=== PATIENT | male | born 1980 | race Caucasian/White ===

== ENCOUNTER 2017-01-15 22:15 | Emergency (ER) | payer SELFPAY ==
[~2017-01-15] VITALS: Ht 182.9 cm; Wt 145.1 kg
[~2017-01-15 22:15] MED LIST: AMOX250S6 PO; CLIN300C3 PO; HYDR-1231 PO
--- OUTSIDE RECORDS SUMMARY | 2017-01-15 22:20 | XMS REPORT | Continuity of Care Document ---
Author Author [facility] Address Unknown Phone Unavailable Allergies Medications Problems Date Dx Coded Attending Type Code Diagnosis Diagnosed By 06/17/2008 THALIA HICKMAN DO 272.0 HYPERCHOLESTEROLEMIA PURE 06/17/2008 THALIA HICKMAN DO 401.1 HYPERTENSION, BENIGN ESSENTIAL 06/17/2008 THALIA HICKMAN DO 709.9 DERMATITIS OTHER SKIN DISORDERS 02/09/2012 THALIA HICKMAN DO V70.5 PREEMPLOYMENT/PRESCHOOL EXAM Procedures Code [place] [address] UA LONG DIP 02/06 Results Encounters ACCT No. Visit Date/Time Discharge Status Pt. Type Provider Facility Loc./Unit Complaint [id number] 02/06/2014 11:22:00 02/06/2014 23: 59:59 CLS Outpatient THALIA HICKMAN DO
[2017-01-15] MEDS ORDERED: HYDR-3729 PO (22:27)
[2017-01-15] MEDS ORDERED: TRAM50TA2 PO (22:27)
[2017-01-15] MEDS ORDERED: LIDOCAINE 1% INJ 20 ML (XYLOCAINE) VIAL INJ ONE (23:45)
[2017-01-16] MEDS ORDERED: CLINDAMYCIN 150 MG (CLEOCIN) CAP PO ONE
[2017-01-16] MEDS ORDERED: AMOX500C2 PO (00:04)
[2017-01-16] MEDS ORDERED: CLIN150C17 PO (00:04)
--- NOTE | 2017-01-16 00:04 | ED General ---
General Chief Complaint: Dental Problems/Pain Stated Complaint: ABCESS IN MOUTH/CHEEK Nursing Triage Note: C/O L upper dental pain with facial swelling x 2 weeks. patient reports recently being on erythromycin Nursing Sepsis Screen: No Definite Risk Source of Information: Patient Exam Limitations: No Limitations History of Present Illness Time Seen by Provider: 23:28 Initial Comments This 36-year-old gentleman presents to the emergency room with complaints of left facial swelling and pain related to a dental abscess. He has been taking erythromycin prescribed by his primary care provider but symptoms have worsened despite. He denies fever. Allergies and Home Medications Allergies Coded Allergies: lisinopril (Verified Allergy, Unknown, ANAPHYLAXIS, 04/05/14) Home Medications Amoxicillin 500 Mg Capsule #40 1,000 MG PO BID Prescribed by: ANGELINA POLANCO on 01/16/17 0004 Clindamycin HCl 150 Mg Capsule #90 450 MG PO TID Prescribed by: ANGELINA POLANCO on 01/16/17 0004 Hydrocodone/Acetaminophen 1 Each Tablet 1 EACH PO (Reported) Tramadol HCl 50 Mg Tablet 50 MG PO (Reported) Constitutional: no symptoms reported EENTM: see HPI Respiratory: no symptoms reported Cardiovascular: no symptoms reported Gastrointestinal: no symptoms reported Genitourinary: no symptoms reported Musculoskeletal: no symptoms reported Skin: no symptoms reported Psychiatric/Neurological: No Symptoms Reported Past Xpdqswc-Tijztd-Rsfwrv Hx Patient Social History Alcohol Use: Denies Use Recreational Drug Use: No Smoking Status: Current Everyday Smoker Type Used: Cigarettes Recent Foreign Travel: No Contact w/Someone Who Travel: No Recent Infectious Disease Expo: No Recent Hopitalizations: No Surgeries HX Surgeries: Yes Surgeries: Adenoidectomy, Orthopedic, Tonsillectomy Respiratory Hx Respiratory Disorders: Yes Respiratory Disorders: Emphysema Cardiovascular Hx Cardiac Disorders: Yes Cardiac Disorders: Hypertension Neurological Hx Neurological Disorders: No Genitourinary Hx Genitourinary Disorders: No Gastrointestinal Hx Gastrointestinal Disorders: No Musculoskeletal Hx Musculoskeletal Disorders: Yes Musculoskeletal Disorders: Scoliosis Endocrine Hx Endocrine Disorders: No HEENT HX ENT Disorders: No Cancer Hx Cancer: No Psychosocial Hx Psychiatric Problems: No Integumentary HX Skin/Integumentary Disorder: No Blood Transfusions Hx Blood Disorders: No Adverse Reaction to a Blood Tr: No Physical Exam Vital Signs Vital Sign - Last 12Hours 01/15/17 22:23 Temp 97.6 Pulse 74 Resp 18 B/P 194/121 Pulse Ox 95 Capillary Refill : Less Than 3 Seconds General Appearance: WD/WN Mild Distress HEENT: PERRL/EOMI Pharynx Normal Other (there is notable erythema and swelling to the left side of the face. There is a abscess with a fluctuant pocket beneath the left upper lip.) Neck: Normal Inspection Supple Respiratory: Lungs Clear Normal Breath Sounds No Accessory Muscle Use No Respiratory Distress Cardiovascular: Regular Rate, Rhythm No Edema No Murmur Neurologic/Psychiatric: Alert Oriented x3 No Motor/Sensory Deficits Normal Mood/Affect developer trading systems II-XII Norm as Tested Skin: Normal Color Warm/Dry I&D : Blade Size: 11 Progress Mucosal surface of the lip and gingiva was anesthetized first with a gauze pads soaked and Hurricaine spray. Then 1 ml of lidocaine was injected on either side of the abscess. A small incision was then made directly over the most fluctuant area. Immediately a significant amount of pus came pouring out of the abscess. Suction was used throughout the procedure to clear blood and purulent drainage. Progress/Results/Core Measures Results/Orders My Orders Orders-ANGELINA MARTÍNEZ MD Lidocaine 1% Injection (Xylocaine 1% Inj (01/15/17 23:45) Clindamycin Capsule (Cleocin Capsule) (01/16/17 00:00) Wound Culture (01/15/17 23:51) Medications Given in ED Current Medications Medications Dose Ordered Sig/Maria M Route Start Time Stop Time Status Last Admin Dose Admin Clindamycin HCl 450 mg ONCE ONCE PO 01/16/17 00:00 01/16/17 00:01 DC 01/16/17 00:07 450 MG Lidocaine HCl ONCE ONCE INJ 01/15/17 23:45 01/15/17 23:46 DC 01/15/17 23:36 10 ML Vital Signs/I&O Vital Sign - Last 12Hours 01/15/17 01/16/17 22:23 00:08 Temp 97.6 Pulse 74 75 Resp 18 20 B/P 194/121 Pulse Ox 95 99 Blood Pressure Mean: 145 Progress Note : Progress Note Patient was treated with clindamycin 450 mg orally in the ER. Wound culture was sent from the abscess drainage. Patient was prescribed clindamycin to add to the erythromycin. Amoxicillin was prescribed as an alternative if clindamycin was to cost prohibitive. Departure Impression Impression: Primary Impression: Dental abscess Additional Impression: Encounter for incision and drainage procedure Disposition: HOME, SELF-CARE Condition: Improved Departure-Patient Inst. Decision time for Depature: 23:40 Referrals: SELVIN LOPEZ DO (PCP) Primary Care Physician [facility] Patient Instructions: Tooth Abscess (DC) Add. Discharge Instructions: Follow-up with a dentist or oral surgeon as soon as possible for dental extractions. You may complete the erythromycin as prescribed and add clindamycin. If clindamycin is cost prohibitive, add amoxicillin. You may take ibuprofen up to 800 mg every 8 hours as needed for pain. Add Tylenol ( acetaminophen) up to 1000 mg every 6 hours as needed for additional pain relief. All discharge instructions reviewed with patient and/or family. Voiced understanding. Scripts Amoxicillin 500 Mg Capsule1,000 Mg PO BID #40 CAP Prov:ANGELINA MARTÍNEZ MD 01/16/17 Clindamycin HCl 150 Mg [place]451 Mg PO TID #90 CAP Prov:ANGELINA MARTÍNEZ MD 01/16/17 ANGELINA MARTÍNEZ MD Jan 16, 2017 00:04
[2017-01-16 00:08] VITALS: BP 159/98
== END 2017-01-16 00:08 | disposition home or self-care (01) ==
LOC: EDUNIT# 22:15 → ER 22:17
DX: K04.7 Periapical abscess without sinus (principal); I10 Essential (primary) hypertension; F17.210 Nicotine dependence, cigarettes, uncomplicated
CPT/HCPCS: 87070; 87205; 99282

== ENCOUNTER 2019-05-25 23:55 | Emergency (ER) | payer SELFPAY ==
[~2019-05-25] VITALS: Ht 182.9 cm; Wt 138.8 kg
[~2019-05-25 23:55] MED LIST changes: +AMOX500C2 PO; +CLIN150C17 PO; +HYDR-3729 PO; +TRAM50TA2 PO
--- OUTSIDE RECORDS SUMMARY | 2019-05-26 | XMS REPORT ---
Author TERESE Sosa [employer] Address Unknown Phone Unavailable Care Team Providers Care Roustabout Hand Name Role Phone TERESE MCNEAL CP Unavailable Allergies, Adverse Reactions, Alerts Substance Reaction Event Type N.K.D.A. 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 Active Medications No Known Medications Procedures Procedure Coding System Code Date VISUAL ACUITY SCREEN CPT-4 07684 Oct 11, 2016 Office Visit, Est Pt., Level 3 CPT-4 49391 Oct 11, 2016 URINALYSIS, AUTO, W/O SCOPE CPT-4 69635 Oct 11, 2016 Vital Signs Date/Time: Oct 11, 2016 Cardiac Monitoring Heart Rate 99 bpm Weight 295.0 lbs Height 72.75 in BMI 39.18 Index Blood Pressure Diastolic 82 mmHg Blood Pressure Systolic 128 mmHg Results Name Result Date Reference Range Unit Abnormality Flag UA LONG DIP (IN HOUSE) ----MIRIAM NEGATIVE 20161012 ----NIT NEGATIVE 20161012 ----SG >1.03 20161012 ----KET NEGATIVE 20161012 ----NICK NEGATIVE 20161012 ----GLU NEGATIVE 20161012 ----Odor NONE 20161012 ----pH 5.0 20161012 ----BLO TRTACE-LYSED 20161012 ----URO 0.2 20161012 ----Protein NEGATIVE 20161012 ----Lot # [id number] ----Exp date 20161012 ----Clarity CLEAR 20161012 ----Color YELLOW 20161012 Summary Purpose [employer] Submission
--- OUTSIDE RECORDS SUMMARY | 2019-05-26 | XMS REPORT ---
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.4 [facility] [id number] [place] [phone] Feb, [facility] [id number] [place] [id number] Jan, [facility] [id number] [place] [phone] Jan, [facility] [address] [id number] Jan, IMMUNIZATIONS No Known Immunizations SOCIAL HISTORY Never Assessed REASON FOR VISIT Pt is here for a dot physical/>KATIE PLAN OF CARE Activity Details Follow Up prn Reason: VITAL SIGNS Height 72 in 2018-10-12 Weight 317 lbs 2018-10-12 Temperature 97.6 degrees Fahrenheit 2018-10-12 Heart Rate 66 bpm 2018-10-12 Respiratory Rate 16 2018-10-12 BMI 42.99 kg/m2 2018-10-12 Blood pressure systolic 118 mmHg 2018-10-12 Blood pressure diastolic 78 mmHg 2018-10-12 MEDICATIONS Unknown Medications RESULTS No Results PROCEDURES No Known procedures INSTRUCTIONS MEDICATIONS ADMINISTERED No Known Medications MEDICAL (GENERAL) HISTORY Type Description Date Surgical History tonsilectomy
--- OUTSIDE RECORDS SUMMARY | 2019-05-26 | XMS REPORT ---
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.4 [facility] [address], [place] [address] Feb, [facility] [id number] [id number] Jan, [facility] [address], [place] [address] Jan, [facility] [id number] [id number] Jan, IMMUNIZATIONS No Known Immunizations SOCIAL HISTORY Never Assessed REASON FOR VISIT [place] [place] VITAL SIGNS MEDICATIONS Unknown Medications RESULTS No Results PROCEDURES No Known procedures INSTRUCTIONS MEDICATIONS ADMINISTERED No Known Medications MEDICAL (GENERAL) HISTORY Type Description Date Surgical History tonsilectomy 8th grad
--- OUTSIDE RECORDS SUMMARY | 2019-05-26 | XMS REPORT | Continuity of Care Document ---
Author Organization Unknown Address Unknown Allergies Active Description Code Type Severity Reaction Onset Reported/Identified Relationship to Patient Clinical Status Yes lisinopril [id number] Drug Allergy Unknown ANAPHYLAXIS 04/05/2014 Medications There is no data. Problems Date Dx Coded Attending Type Code Diagnosis Diagnosed By 06/17/2008 THALIA HICKMAN DO 272.0 HYPERCHOLESTEROLEMIA PURE 06/17/2008 THALIA HICKMAN DO 401.1 HYPERTENSION, BENIGN ESSENTIAL 06/17/2008 THALIA HICKMAN DO 709.9 DERMATITIS OTHER SKIN DISORDERS 02/09/2012 THALIA HICKMAN DO V70.5 PREEMPLOYMENT/PRESCHOOL EXAM 04/05/2014 JHOANA THAPA M[employer]UM T[employer] GUIDE Ot 521.00 UNSPEC DENTAL CARIES 04/05/2014 JHOANA THAPA [employer] GUIDE Ot 522.5 PERIAPICAL ABSCESS 01/17/2017 TANYA RANDHAWA, ANGELINA Bhagat Ot F17.210 NICOTINE DEPENDENCE, CIGARETTES, UNCOMPL 01/17/2017 TANYA RANDHAWA, ANGELINA Bhagat Ot I10 ESSENTIAL (PRIMARY) HYPERTENSION 01/17/2017 TANYA RANDHAWA, ANGELINA Bhagat Ot K04.7 PERIAPICAL ABSCESS WITHOUT SINUS Procedures Code [place] [address] UA LONG DIP 02/06/2014 Results Test Result Range Gram stain microscopy - 01/15/17 23:40 GRAM STAIN RESULT FEW GRAM POSITIVE RODS NRG Bacteria identification in wound by culture - 01/15/17 23:40 Bacteria identification in wound by culture [id number] NRG FREE TEXT EXTERNAL FROM THIO BROTH NRG QUANTITY OF GROWTH Isolated NRG Encounters ACCT No. Visit Date/Time Discharge Status Pt. Type Provider Facility Loc./Unit Complaint [id number] 02/06/2014 11:22:00 02/06/2014 23:59:59 CLS Outpatient THALIA HICKMAN DO [id number] 01/15/2017 22:17:00 01/16/2017 00:08:00 DIS Outpatient TANYA RANDHAWA, ANGELINA Bhagat [facility]CHEEK [id number] 04/05/2014 22:18:00 04/05/2014 22:59:00 DIS Emergency JHOANA THAPA APRN Via [facility] ER ABSCESSED TOOTH
--- NOTE | 2019-05-26 01:00 | NUR ---
PATIENT TO ROOM 8, C/O DENTAL PAIN STATES HE IS HAVING ALL OF HIS TEETH REMOVED ON MONDAY THIS NEXT WEEK BUT HIS PAIN MEDICATION WAS NOT HELPING ENOUGH WITH HIS PAIN.
--- NOTE | 2019-05-26 01:40 | NUR ---
PATIENT INFORMED OF DELAY IN CARE D/T EMERGENT PATIENT. PATIENT VERBALIZES UNDERSTANDING, DENIES NEEDS AT THIS TIME WILL CONTINUE TO MONITOR.
[2019-05-26 02:10] VITALS: BP 145/101
--- NOTE | 2019-05-26 02:10 | NUR ---
STATED HE COULD DEAL WITH THE PAIN AND DID NOT WANT TO WAIT ANY LONGER TO SEE THE DOCTOR. (DOCTOR WAS OUT OF DEPARTMENT IN CODE SITUATION.)
== END 2019-05-26 02:10 | disposition home or self-care (01) ==
LOC: EDUNIT# 23:55 → ER 23:56
DX: K08.89 Other specified disorders of teeth and supporting structures (principal)
CPT/HCPCS: 99282

== ENCOUNTER → 2023-01-13 | Outpatient (CLI) | payer OTHER ==
[~2023-01-13] MED LIST changes: -CLIN150C17 PO; +CLIN150C20 PO; -TRAM50TA2 PO; +TRM50T PO
--- NOTE | 2023-01-13 10:11 | Diagnostic Imaging Report ---
PROCEDURE: CT Sinus w/o Contrast. TECHNIQUE: Multiple contiguous axial images were obtained through the sinuses without the use of intravenous contrast. Coronal reformations were performed. All CT scans use one or more of the following dose optimizing techniques: automated exposure control, MA and/or KvP adjustment based on a patient size and exam type, or iterative reconstruction. INDICATION: Sinusitis. COMPARISON: None FINDINGS: Mucosal thickening is seen in the bilateral maxillary sinuses. Mild mucosal thickening is seen in the anterior ethmoid sinuses. A mucus retention cyst is seen in the left maxillary sinus. No fluid level is seen. The ostiomeatal complexes are patent. The sphenoethmoid and frontoethmoid recesses are patent and unremarkable. Bilateral mastoid effusions are seen. Fluid is seen throughout the right middle ear cavity. The bony nasal septum is midline. No acute facial fractures. The globes and orbits are symmetric and unremarkable. Included intracranial contents show no acute abnormalities. The included soft tissues of the head are normal in appearance. IMPRESSION: 1. Paranasal sinus disease involving the bilateral maxillary sinuses and anterior ethmoid sinuses. No fluid levels to suggest acute sinusitis. 2. Right-sided otomastoiditis. 3. Mastoid effusion on the left. Dictated by: Dictated on workstation # [id number]
== END ==
LOC: RAD 09:42
PROVIDERS: ATTEND Otolaryngology Otolaryngology/Facial Plastic Surgery
DX: J32.0 Chronic maxillary sinusitis (principal); J32.2 Chronic ethmoidal sinusitis; H70.891 Other mastoiditis and related conditions, right ear; H74.8X2 Other specified disorders of left middle ear and mastoid
CPT/HCPCS: 70486